=== PATIENT | male | born 1985 ===

== ENCOUNTER 2022-02-14 09:52 | Emergency (ER) | payer SELFPAY ==
--- NOTE | 2022-02-14 11:19 | Emergency Department Report ---
Stated Complaint: LEG PAIN - HPI History of Present Illness: pt reports sore to right lower leg with swelling and drainage x 2 weeks. reports scratching at bump - ROS Review of Systems: right lower leg infection MSE screening note: Focused history and physical exam performed. Due to findings the following was ordered: ED Disposition for MSE Condition: Stable
[2022-02-14 11:20] VITALS: BP 136/56
--- NOTE | 2022-02-14 11:27 | Emergency Department Report ---
ED General Adult HPI - General Chief complaint: Wound/Laceration Stated complaint: LEG PAIN Time Seen by Provider: 02/14/22 11:19 Source: patient Mode of arrival: Ambulatory Limitations: No Limitations - History of Present Illness Initial comments: 36 With no medical Hx patient report infection to right lower leg x 2 week due to scratching bump 2 weeks ago. No other symptoms reported. No fever reported. Unknown tetanus - Related Data Previous Rx's Medication Instructions Recorded Last Taken Type Sulfamethoxazole/Trimethoprim 1 each PO BID 10 Days #20 tab 02/14/22 Unknown Rx [Bactrim DS TAB] Allergies Allergy/AdvReac Type Severity Reaction Status Date / Time No Known Allergies Allergy Unverified 02/14/22 11:21 ED Review of Systems ROS: Stated complaint: LEG PAIN Other details as noted in HPI Comment: All other systems reviewed and negative Skin: other (rash noted with drainage to right lower leg ) ED Past Medical Hx - Past Medical History Previous Medical History?: No - Surgical History Past Surgical History?: No - Medications Home Medications: Home Medications Medication Instructions Recorded Confirmed Last Taken Type Sulfamethoxazole/Trimethoprim 1 each PO BID 10 Days #20 tab 02/14/22 Unknown Rx [Bactrim DS TAB] ED Physical Exam - General Limitations: No Limitations General appearance: alert, in no apparent distress - Head Head exam: Present: atraumatic, normocephalic - Eye Eye exam: Present: normal appearance - ENT ENT exam: Present: mucous membranes moist - Neck Neck exam: Present: normal inspection - Respiratory Respiratory exam: Present: normal lung sounds bilaterally. Absent: respiratory distress - Cardiovascular Cardiovascular Exam: Present: regular rate, normal rhythm. Absent: systolic murmur, diastolic murmur, rubs, gallop - GI/Abdominal GI/Abdominal exam: Present: soft, normal bowel sounds - Rectal Rectal exam: Present: deferred - Extremities Exam Extremities exam: Present: normal inspection - Back Exam Back exam: Present: normal inspection - Neurological Exam Neurological exam: Present: alert, oriented X3 - Psychiatric Psychiatric exam: Present: normal affect, normal mood - Skin Skin exam: Present: warm, dry, intact, normal color, rash, other (right lower leg with rash ) ED Course Vital Signs 02/14/22 11:17 Temperature 98.5 F Pulse Rate 54 L Respiratory 18 Rate Blood Pressure 136/56 [Left] O2 Sat by Pulse 99 Oximetry ED Medical Decision Making - Medical Decision Making 36 With no medical Hx patient report infection to right lower leg x 2 week due to scratching bump 2 weeks ago. No other symptoms reported. No fever reported. Unknown tetanus Right leg with cellulitis present to the anterior tib-fib area. Drainage present erythema and swelling noted. No visible abscess. Patient does not require I&D. No concerns for admission. No temp noted. Patient to be discharged home with oral antibiotics. Patient agrees with plan of care and verbalized understanding. Patient informed if symptoms are to get worse to report back to the ER. Patient stable for discharge. Vital Signs 02/14/22 11:17 Temperature 98.5 F Pulse Rate 54 L Respiratory 18 Rate Blood Pressure 136/56 [Left] O2 Sat by Pulse 99 Oximetry Critical care attestation.: If time is entered above; I have spent that time in minutes in the direct care of this critically ill patient, excluding procedure time. ED Disposition Clinical Impression: Cellulitis of right leg without foot Disposition: 01 HOME / SELF CARE / HOMELESS Is pt being admited?: No Condition: Stable Instructions: Cellulitis, Adult Prescriptions: Sulfamethoxazole/Trimethoprim [Bactrim DS TAB] 1 each PO BID 10 Days #20 tab Referrals: PRIMARY CARE, [Primary Care Provider] - 3-5 Days
[2022-02-14] MEDS ORDERED: TETANUS,DIPH,PERTUSS(ACELL) VACCINE 0.5 ML SYRINGE IM ONE (11:41)
== END 2022-02-14 15:25 | disposition home or self-care (01) ==
LOC: ED 09:52
DX: L03.115 Cellulitis of right lower limb (principal); Z79.899 Other long term (current) drug therapy
CPT/HCPCS: 90471; 90715; 99282